=== PATIENT | female | born 1960 | race Two or more races ===

== ENCOUNTER 2024-07-28 18:57 | Emergency (ER) | payer OTHER ==
[~2024-07-28] VITALS: Ht 165.1 cm; Wt 63.5 kg
[2024-07-28] MEDS: HYDROMORPHONE 1 MG/1 ML DISP.SYRIN IM ONE (19:29)
[2024-07-28] MEDS ORDERED: HYDROMORPHONE 1 MG/1 ML DISP.SYRIN ONE (19:29)
[2024-07-28] MEDS ORDERED: PROPOFOL 20 ML IV ONE (19:57)
[2024-07-28] MEDS: PROPOFOL 200 MG/20 ML VIAL IV ONE (19:58)
[2024-07-28] MEDS: KETAMINE HCL (500MG/10ML) 50 MG/ML VIAL IV ONE (19:58)
[2024-07-28] MEDS ORDERED: HYDR-4209 PO (21:10)
[2024-07-28 21:38] VITALS: BP 122/84; TEMP 98.1; O2SAT 100
== END 2024-07-28 21:39 | disposition home or self-care (01) ==
LOC: ER 19:01
DX: S52.515A Nondisplaced fracture of left radial styloid process, initial encounter for closed fracture (principal); I10 Essential (primary) hypertension; Z88.2 Allergy status to sulfonamides; W18.39XA Other fall on same level, initial encounter; Y93.K1 Activity, walking an animal; Y92.89 Other specified places as the place of occurrence of the external cause; Y99.8 Other external cause status
CPT/HCPCS: 99285; 25600; 96372; 99152; 73090; 73060; 73030; 73110 ×2; J2704; J1171; G0500